=== PATIENT | female | born 1980 | race Caucasian/White ===

== ENCOUNTER 2016-11-05 21:37 | Emergency (ER) | payer OTHER ==
[~2016-11-05] VITALS: Ht 165.1 cm; Wt 95.3 kg
[~2016-11-05 21:37] MED LIST: MTR600X PO; PRENTAB26 PO; SUBUTEX SL
[2016-11-05 21:40] VITALS: TEMP 36.8; Ht 165.1 cm; Wt 95.3 kg
[2016-11-05] MEDS ORDERED: CEFTRIAXONE SOD INJ 1 GM ADDVIAL IV STA (22:05)
[2016-11-05] MEDS ORDERED: MoRPHine SULFATE 4 MG/ML 1 ML CARP\\VIAL IV STA (22:05)
[2016-11-05] MEDS ORDERED: ONDANSETRON INJ 2 MG/ML 2 ML VIAL IV STA (22:05)
[2016-11-05] MEDS ORDERED: XYLOCAINE 1%/SOD BICARB 20 ML VIAL INFIL ONE (22:15)
[2016-11-05 22:57] VITALS: BP 128/81; PULSE 88; O2SAT 98
[2016-11-05] MEDS ORDERED: SULF800T23 PO (23:38)
[2016-11-05] MEDS ORDERED: CEPH500C2 PO (23:38)
[2016-11-05] MEDS ORDERED: SEPTRA DS HOME PACK 1 EA VIAL PO ONE (23:45)
[2016-11-05] MEDS ORDERED: CEPHALEXIN 500MG HOME PACK 1 EA BTL PO ONE (23:45)
--- NOTE | 2016-11-06 04:38 | EMERGENCY ROOM VISIT NOTE ---
History First contact with patient: 21:59 Chief Complaint: WOUND INFECTION Stated Complaint: BOIL ON BREAST THAT IS POSSIBLY INFECTED History of Present Illness The patient is a 36 year old female who presents to the Emergency Room with complaints of right breast pain and swelling for the past few days who has a boil there and put a needle in it but cannot get anything out. Tetanus is current. Patient denies fever, chills, nausea, vomiting, chest pain, dyspnea, abdominal pain. No history of MRSA. Review of Systems See HPI for pertinent positives & negatives. A total of 6 systems reviewed and were otherwise negative. 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 (12) TOBACCO USE DISORDER Social History Smoking Status: Current Every Day Smoker Alcohol Use: none Drug Use: none Marital Status: Housing Status: lives with family Occupation Status: employed Current/Historical Medications Scheduled Cephalexin Monohydrate (Keflex), 500 MG PO QID Sulfa/Trimethoprim (Bactrim Ds 800MG/160MG), 1 TAB PO BID Allergies Coded Allergies: Sertraline (Verified Allergy, Unknown, Suicide ideations., 09/23/14) Physical Exam Vital Signs Date Time Temp Pulse Resp B/P Pulse Ox O2 Delivery O2 Flow Rate FiO2 11/05/16 22:57 88 18 128/81 98 Room Air 11/05/16 21:40 36.8 83 20 149/93 98 Room Air Pain Rating (0-10): 2.0 Physical Exam VITALS: Vitals are noted on the nurse's note and reviewed by myself. Vital signs stable. GENERAL: Pleasant female, in no acute distress, nondiaphoretic, well-developed well-nourished. SKIN: Capillary reflex less than 2 seconds. HEENT: Normocephalic. PERRLA. EOMI. Nares patent. Mucous membranes moist. Neck is supple without nuchal rigidity. Breast exam: Right breast upper quadrant with palpable abscess 2 cm x 3 cm with surrounding cellulitis a 5 cm x 5 cm, no right axillary lymph node enlargement, left breast normal shot from present HEART: Regular rate and rhythm without murmurs gallops or rubs. LUNGS: Clear to auscultation bilaterally without wheezes, rales or rhonchi. No retractions or accessory muscle use. ABDOMEN: Positive bowel sounds x 4. Normal tympanic percussion. Soft, nontender, without masses or organomegaly. Weller sign negative. No guarding or rebound tenderness. MUSCULOSKELETAL: No gross musculoskeletal defects. No pedal edema. No calf tenderness. NEURO: Patient was alert and oriented to person place and time. Normal sensation to light and sharp touch. No focal neurological deficits. Medical Decision & Procedures Medications Administered Medications (Trade) Dose Ordered Sig/Nadja Route Start Time Stop Time Status Last Admin Dose Admin Cephalexin Monohydrate (Keflex 500MG Home Pack) 1 homepack NOW ONCE PO 11/05/16 23:45 11/05/16 23:46 DC 11/05/16 23:44 1 HOMEPACK Trimethoprim/ Sulfamethoxazole (Sulfameth/ Trimeth Ds 800/ 160MG Home Pack) 1 homepack UD ONCE PO 11/05/16 23:45 11/05/16 23:46 DC 11/05/16 23:44 1 HOMEPACK Procedure Incision & Drainage Indication: Abscess. Location: right breat Verbal consent was obtained after the risks and benefits were explained, including but not limited to bleeding, scarring, infection, pain, and bone/joint /nerve damage. At this time, the risks of the procedure are less than the risks of NOT performing the procedure. A time out was taken and the correct patient and site identified. The skin was prepped with betadine and a sterile field set. The wound was anesthetized with 5 ml of 1% lidocaine without epinephrine. The abscess cavity was entered with a number 11 blade and purulent material expressed. Copious irrigation was performed using normal saline. The wound was explored for foreign bodies and none found. Debridement was not performed. Packing placed and a sterile dressing applied. Detailed wound care instructions and signs and symptoms of worsening infection reviewed with the patient. No complications and the patient tolerated the procedure well. ED Course Prior records reviewed and summarized as above. Triage Nursing notes reviewed. Additional history obtained from family. The patient's history was concerning for swelling and redness of the skin. Differential diagnosis: Etiologies such as cellulitis, abscess, MRSA infection, mastitis, necrotizing fasciitis, dermatitis, drug eruption, as well as others were entertained.. Physical examination: The physical examination was consistent with cellulitis with abscess ER treatment provided: Keflex, Bactrim On reassessment the patient felt better. Diagnostics interpreted by me: The labs revealed wound culture pending Labs were unable to retain by nursing immediately and patient had to be at work at 1 AM. Patient refused ultrasound and laboratory testing. This appears to be abscess with surrounding cellulitis. Patient was advised to have wound repacking in 2 days or to return to the ER immediately for fevers, spreading infection, vomiting, worsening signs or symptoms or as needed. Patient did request to have the abscess I&D. She started Keflex and Bactrim. She is well-appearing. By the evaluation outlined above emergent etiologies such as necrotizing fasciitis, as well as others were deemed relatively unlikely. The pt informed about the findings as listed above. All questions were answered and pleased with the treatment. Return instructions were outlined and the patient was discharged in stable condition. Outpatient prescription management: Keflex, Bactrim Referral: The patient was referred back to primary care physician for follow-up in 2 to 3 days for a recheck of the current condition. Medical Decision As above Impression Primary Impression: Abscess of right breast Departure Information Dispostion Home / Self-Care Condition GOOD Prescriptions Cephalexin Monohydrate (KEFLEX) 500 Mg Cap 500 MG PO QID for 9 Days, #36 CAP Prov: Karyn Solano PA-C 11/05/16 Sulfa/Trimethoprim (Bactrim Ds 800MG/160MG) Tab 1 TAB PO BID for 9 Days, #18 TAB Prov: Karyn Solano PA-C 11/05/16 Forms WORK / SCHOOL INSTRUCTIONS, HOME CARE DOCUMENTATION FORM, IMPORTANT VISIT INFORMATION Patient Instructions [facility], ED Abscess IandD Additional Instructions Frequently change outer dressing. Leave inner wick inside. Bring packing back and do not open it up to your appointment in 2-3 days for wound repacking. Cephalexin(Keflex) 500mg: Take one pill four times daily for 10 days for your skin infection. All antibiotics can cause diarrhea. If this occurs and you feel worse or it does not resolve in 1-2 days follow up with your doctor or return to the Emergency Department as this could be signs of serious underlying problems. Any medication can cause an allergic reaction, stop the pills immediately and return to the ER for rash, hives, breathing difficulties, or swelling. Trimethoprim-Sulfamethoxazole(Bactrim DS): Take one pill twice daily for 10 days for your skin infection. All antibiotics can cause diarrhea. If this occurs and you feel worse or it does not resolve in 1-2 days follow up with your doctor or return to the Emergency Department as this could be signs of serious underlying problems. Any medication can cause an allergic reaction, stop the pills immediately and return to the ER for rash, hives, breathing difficulties, or swelling. Ibuprofen(Motrin, Advil) may be used for fever or pain. Use 600mg every six hours as needed. Take with food. Avoid using more than 2400mg in a 24 hour period. Do not use 2400mg per day for more than three consecutive days without physician direction. Prolonged inappropriate use can lead to stomach upset or ulcers. (AND/OR) Acetaminophen(Tylenol) may be used for fever or pain. Use 1000mg every six hours as needed. Avoid using more than 3000mg in a 24 hour period. Rest and drink plenty of fluids. Continue current medications. Return to the ER for severe pain, persistent fevers, spreading redness, or any worsening of your condition. Follow up with your primary physician or here in the ER within 2-3 days for a recheck of the current condition and wound repacking.
== END 2016-11-05 23:48 | disposition home or self-care (01) ==
LOC: C.EDB 21:38
DX: N61.1 Abscess of the breast and nipple (principal); F17.200 Nicotine dependence, unspecified, uncomplicated

== ENCOUNTER 2016-11-07 21:32 | Emergency (ER) | payer OTHER ==
[~2016-11-07] VITALS: Ht 165.1 cm; Wt 94.7 kg
[~2016-11-07 21:32] MED LIST changes: +CEPH500C2 PO; -MTR600X PO; -PRENTAB26 PO; -SUBUTEX SL; +SULF800T23 PO
[2016-11-07 21:36] VITALS: TEMP 36.9; Ht 165.1 cm; Wt 94.7 kg
--- NOTE | 2016-11-07 22:32 | EMERGENCY ROOM VISIT NOTE ---
ED Visit Note First contact with patient: 22:08 CHIEF COMPLAINT: Wound check HISTORY OF PRESENT ILLNESS: This 36 yo patient presents to the emergency department for a recheck of right breast abscess with surrounding cellulitis that was seen by myself 2 days ago and packed. Patient states overall it is healing nicely and is here for wound recheck and repacking. Previous care outlined has been followed without difficulty. REVIEW OF SYSTEMS: A 6 system review of systems was completed with positives and pertinent negatives listed in the HPI. ALLERGIES: reviewed MEDICATIONS: Bactrim, Keflex, reviewed PMH: Unchanged from previous visit. PHYSICAL EXAM: Vital Signs reviewed, see Nurse's notes. Patient is afebrile, vital signs stable. GENERAL: Pleasant female, awake, alert, well appearing, no acute distress SKIN: Inspection of the right breast reveals decreased erythema with no palpable abscess. MUSCULOSKELETAL: Chest nontender to palpation NEURO: No sensory or motor deficits noted. EMERGENCY DEPARTMENT COURSE AND DECISION MAKING: I examined the patient. The patient presented with an isolated wound as above. Wound was repacked without difficulties, wound culture still pending but shows gram-positive cocci. The wound is healing well. ER Treatment: The wound was repacked. Patient was advised to have wound repacking in 3 days Discharge instructions reviewed. Discharged in stable condition. DIAGNOSIS: Healing right breast abscess with surrounding cellulitis TREATMENT PLAN: As below Problem List Medical Problems: (1) Appendectomy Status: Resolved (2) LUMBAGO Status: Chronic (3) MENSTRUAL DISORDER NEC Status: Chronic (4) MIGRAINE UNSPECIFIED W/O INTRACTABLE MIGRAINE Status: Chronic (5) PITUITARY DISORDER NEC Status: Chronic (6) POISONING-ANTIDEPRESSANT Status: Chronic (7) PSEUDOTUMOR CEREBRI Status: Chronic (8) SCIATICA Status: Chronic (9) STREP SORE THROAT Status: Chronic (10) SUICIDE-ANALGESICS Status: Chronic (11) SUICIDE-PSYCHOTROPIC AGT Status: Chronic (12) TOBACCO USE DISORDER Status: Chronic Current/Historical Medications Scheduled Cephalexin Monohydrate (Keflex), 500 MG PO QID Sulfa/Trimethoprim (Bactrim Ds 800MG/160MG), 1 TAB PO BID Allergies Coded Allergies: Sertraline (Verified Allergy, Unknown, Suicide ideations., 09/23/14) Vital Signs Date Time Temp Pulse Resp B/P Pulse Ox O2 Delivery O2 Flow Rate FiO2 11/07/16 21:36 36.9 76 18 137/83 99 Room Air Departure Information Referrals No Doctor, Assigned (PCP) Patient Instructions [facility]
[2016-11-07 22:38] VITALS: BP 130/86; PULSE 81; O2SAT 97
== END 2016-11-07 22:42 | disposition home or self-care (01) ==
LOC: C.EDB 21:34 → C.EDD 22:42
DX: N61.0 Mastitis without abscess (principal); Z48.01 Encounter for change or removal of surgical wound dressing; F17.200 Nicotine dependence, unspecified, uncomplicated

== ENCOUNTER 2016-11-10 20:57 | Emergency (ER) | payer OTHER ==
[~2016-11-10] VITALS: Ht 165.1 cm; Wt 96.2 kg
[2016-11-10 21:02] VITALS: BP 142/81; PULSE 79; TEMP 36.6; O2SAT 100; Ht 165.1 cm; Wt 96.2 kg
--- NOTE | 2016-11-10 21:42 | EMERGENCY ROOM VISIT NOTE ---
ED Visit Note First contact with patient: 21:26 HISTORY OF PRESENT ILLNESS: This 36 yo patient presents to the emergency department for a recheck of right breast abscess with surrounding cellulitis that was seen by myself 5 days ago and packed. Patient states overall it is healing nicely and is here for wound recheck and repacking. Previous care outlined has been followed without difficulty. Patient states she does not have a family care doctor and would like to return here for wound repacking. Patient was offered referral to family medicine and declined. REVIEW OF SYSTEMS: A 6 system review of systems was completed with positives and pertinent negatives listed in the HPI. ALLERGIES: reviewed MEDICATIONS: Bactrim, Keflex, reviewed PMH: Unchanged from previous visit. PHYSICAL EXAM: Vital Signs reviewed, see Nurse's notes. Patient is afebrile, vital signs stable. GENERAL: Pleasant female, awake, alert, well appearing, no acute distress SKIN: Inspection of the right breast reveals decreased erythema with no palpable abscess. MUSCULOSKELETAL: Chest nontender to palpation NEURO: No sensory or motor deficits noted. EMERGENCY DEPARTMENT COURSE AND DECISION MAKING: I examined the patient. The patient presented with an isolated wound as above. Wound was repacked without difficulties, wound culture still pending but shows gram-positive cocci. The wound is healing well. ER Treatment: The wound was repacked. Patient was advised to have wound repacking in 3 days Discharge instructions reviewed. Discharged in stable condition. DIAGNOSIS: Healing right breast abscess with surrounding cellulitis TREATMENT PLAN: As below Problem List Medical Problems: (1) Appendectomy Status: Resolved (2) LUMBAGO Status: Chronic (3) MENSTRUAL DISORDER NEC Status: Chronic (4) MIGRAINE UNSPECIFIED W/O INTRACTABLE MIGRAINE Status: Chronic (5) PITUITARY DISORDER NEC Status: Chronic (6) POISONING-ANTIDEPRESSANT Status: Chronic (7) PSEUDOTUMOR CEREBRI Status: Chronic (8) SCIATICA Status: Chronic (9) STREP SORE THROAT Status: Chronic (10) SUICIDE-ANALGESICS Status: Chronic (11) SUICIDE-PSYCHOTROPIC AGT Status: Chronic (12) TOBACCO USE DISORDER Status: Chronic Current/Historical Medications Scheduled Cephalexin Monohydrate (Keflex), 500 MG PO QID Sulfa/Trimethoprim (Bactrim Ds 800MG/160MG), 1 TAB PO BID Allergies Coded Allergies: Sertraline (Verified Allergy, Unknown, Suicide ideations., 12/16/14) Vital Signs Date Time Temp Pulse Resp B/P Pulse Ox O2 Delivery O2 Flow Rate FiO2 11/10/16 21:02 36.6 79 18 142/81 100 Room Air Departure Information Referrals No Doctor, Assigned (PCP) Patient Instructions [facility]
== END 2016-11-10 21:53 | disposition home or self-care (01) ==
LOC: C.EDB 21:00 → C.EDD 21:53
DX: N61.1 Abscess of the breast and nipple (principal); Z48.00 Encounter for change or removal of nonsurgical wound dressing; M54.5 Low back pain; N92.6 Irregular menstruation, unspecified; G43.909 Migraine, unspecified, not intractable, without status migrainosus; E23.7 Disorder of pituitary gland, unspecified; G93.2 Benign intracranial hypertension; F17.200 Nicotine dependence, unspecified, uncomplicated

== ENCOUNTER 2016-11-14 21:34 | Emergency (ER) | payer OTHER ==
[~2016-11-14] VITALS: Ht 165.1 cm; Wt 96.2 kg
[2016-11-14 21:54] VITALS: BP 138/78; PULSE 79; TEMP 36.6; O2SAT 99; Ht 165.1 cm; Wt 96.2 kg
--- NOTE | 2016-11-14 22:08 | EMERGENCY ROOM VISIT NOTE ---
ED Visit Note First contact with patient: 21:57 HISTORY OF PRESENT ILLNESS: This 36 yo patient presents to the emergency department for a recheck of right breast abscess with surrounding cellulitis that was seen by myself 5 days ago and packed. Patient states overall it is healing nicely and is here for wound recheck and repacking. Previous care outlined has been followed without difficulty. Patient states she does not have a family care doctor and would like to return here for wound repacking. Patient was offered referral to family medicine and declined. REVIEW OF SYSTEMS: A 6 system review of systems was completed with positives and pertinent negatives listed in the HPI. ALLERGIES: reviewed MEDICATIONS: Bactrim, Keflex, reviewed PMH: Unchanged from previous visit. PHYSICAL EXAM: Vital Signs reviewed, see Nurse's notes. Patient is afebrile, vital signs stable. GENERAL: Pleasant female, awake, alert, well appearing, no acute distress SKIN: Inspection of the right breast reveals decreased erythema with no palpable abscess. MUSCULOSKELETAL: Chest nontender to palpation NEURO: No sensory or motor deficits noted. EMERGENCY DEPARTMENT COURSE AND DECISION MAKING: I examined the patient. The patient presented with an isolated wound as above. Wound was repacked without difficulties, wound culture still pending but shows gram-positive cocci. The wound is healing well. ER Treatment: The wound was repacked. Patient was advised to have wound repacking in 3 days Discharge instructions reviewed. Discharged in stable condition. DIAGNOSIS: Healing right breast abscess with surrounding cellulitis TREATMENT PLAN: As below Problem List Medical Problems: (1) Appendectomy Status: Resolved (2) LUMBAGO Status: Chronic (3) MENSTRUAL DISORDER NEC Status: Chronic (4) MIGRAINE UNSPECIFIED W/O INTRACTABLE MIGRAINE Status: Chronic (5) PITUITARY DISORDER NEC Status: Chronic (6) POISONING-ANTIDEPRESSANT Status: Chronic (7) PSEUDOTUMOR CEREBRI Status: Chronic (8) SCIATICA Status: Chronic (9) STREP SORE THROAT Status: Chronic (10) SUICIDE-ANALGESICS Status: Chronic (11) SUICIDE-PSYCHOTROPIC AGT Status: Chronic (12) TOBACCO USE DISORDER Status: Chronic Current/Historical Medications Scheduled Cephalexin Monohydrate (Keflex), 500 MG PO QID Sulfa/Trimethoprim (Bactrim Ds 800MG/160MG), 1 TAB PO BID Allergies Coded Allergies: Sertraline (Verified Allergy, Unknown, Suicide ideations., 12/16/14) Vital Signs Date Time Temp Pulse Resp B/P Pulse Ox O2 Delivery O2 Flow Rate FiO2 11/14/16 21:54 36.6 79 18 138/78 99 Room Air Departure Information Referrals No Doctor, Assigned (PCP) Patient Instructions [facility]
== END 2016-11-14 22:27 | disposition home or self-care (01) ==
LOC: C.EDB 21:35 → C.EDD 22:27
DX: N61.1 Abscess of the breast and nipple (principal); Z88.8 Allergy status to other drugs, medicaments and biological substances

== ENCOUNTER 2017-03-12 18:32 | Emergency (ER) | payer OTHER ==
[~2017-03-12] VITALS: Ht 165.1 cm; Wt 89.0 kg
[2017-03-12 18:39] VITALS: TEMP 37.1; O2SAT 100; Ht 165.1 cm; Wt 89.0 kg
[2017-03-12] MEDS ORDERED: MULT-506 PO (18:55)
[2017-03-12] MEDS ORDERED: HYDROXYCUT PO (18:55)
--- NOTE | 2017-03-12 20:48 | DIAGNOSTIC IMAGING REPORT ---
RIGHT UPPER EXTREMITY VENOUS DOPPLER HISTORY: right arm pain/swelling Right COMPARISON STUDY: Venous Doppler 03/17/2013. FINDINGS: The right internal jugular vein is patent. There is normal flow within the right subclavian vein. There is normal flow and compressibility within the right axillary, basilic, brachial, radial, ulnar, and visualized cephalic veins. Within the right antecubital fossa there is a 2.4 x 1.3 x 1.4 cm complex area. This may represent complex fluid in the setting of a small abscess or phlegmon. IMPRESSION: No DVT within the right upper extremity. A 2.4 x 1.4 x 1.3 cm hypoechoic area within the right antecubital fossa. This may represent a developing abscess or phlegmon. Electronically signed by: Ike Reinoso M.D. 03/12/2017 8:47 PM Dictated Date/Time: 03/12/2017 8:45 PM
[2017-03-12] MEDS ORDERED: SEPTRA DS HOME PACK 1 EA VIAL PO ONE (21:00)
[2017-03-12] MEDS ORDERED: CEPHALEXIN 500MG HOME PACK 1 EA BTL PO ONE (21:00)
[2017-03-12] MEDS ORDERED: CEPH500C PO (21:06)
[2017-03-12] MEDS ORDERED: SULF800T23 PO (21:06)
--- NOTE | 2017-03-12 21:08 | EMERGENCY ROOM VISIT NOTE ---
History First contact with patient: 18:45 Chief Complaint: WOUND INFECTION Stated Complaint: SCAR OPENED ON R ARM,LUMP FORMED, RED Nursing Triage Summary: former IVDU and one of her friends nails caught on old trach timur scar and was at camp and now is concerned for infection did 't get irritated until she started tanning are is not red or warm to touch mild swelling right AC area History of Present Illness The patient is a 36 year old female who presents to the Emergency Room with complaints of swelling and pain of the right forearm. The patient states that she is a former IV drug user. The patient states she has not used drugs in 6 years. She reports that a few weeks ago, one of her friends fingernails got caught on an old scar in her right antecubital fossa. She reports over the past several days, she has noticed swelling and mild pain in the area. She states this occurred after she started tanning and using a tanning lotion. She has a history of both infections and superficial thrombophlebitis in this arm. She denies difficulty moving the arm, fevers or chills. Review of Systems A complete 10 point review of systems was reviewed with the patient with pertinent positives and negatives as per history of present illness. All else were negative. 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 (12) TOBACCO USE DISORDER Social History Smoking Status: Current Every Day Smoker Alcohol Use: none Drug Use: none Marital Status: Housing Status: lives with family Occupation Status: employed Current/Historical Medications Scheduled Cephalexin Monohydrate (Keflex), 500 MG PO QID Multivitamin (Multivitamin), 1 TAB PO DAILY Sulfa/Trimethoprim (Bactrim Ds 800MG/160MG), 1 TAB PO BID [Hydroxycut], 1 DOSE PO DIRECTED Allergies Coded Allergies: Sertraline (Verified Allergy, Severe, THROAT SWELLING-Suicide ideations., 03/12/17) Physical Exam Vital Signs Date Time Temp Pulse Resp B/P (MAP) Pulse Ox O2 Delivery O2 Flow Rate FiO2 6/4/17 21:16 86 137/89 03/12/17 18:39 37.1 116 18 154/90 100 Physical Exam VITALS: Vitals are noted on the nurse's note and reviewed by myself. Vital signs stable. GENERAL: This is a 36-year-old female, in no acute distress, nondiaphoretic, well-developed well-nourished. SKIN: There is an area of erythema and mild induration over the anterior right proximal forearm. There is no fluctuance. There is no significant erythema or warmth. HEART: Regular rate and rhythm without murmurs gallops or rubs. LUNGS: Clear to auscultation bilaterally without wheezes, rales or rhonchi. NEURO: Patient was alert and oriented to person place and time. Normal sensation to light and sharp touch. Medical Decision & Procedures ER Provider Diagnostic Interpretation: RIGHT UPPER EXTREMITY VENOUS DOPPLER HISTORY: right arm pain/swelling Right COMPARISON STUDY: Venous Doppler 03/17/2013. FINDINGS: The right internal jugular vein is patent. There is normal flow within the right subclavian vein. There is normal flow and compressibility within the right axillary, basilic, brachial, radial, ulnar, and visualized cephalic veins. Within the right antecubital fossa there is a 2.4 x 1.3 x 1.4 cm complex area. This may represent complex fluid in the setting of a small abscess or phlegmon. IMPRESSION: No DVT within the right upper extremity. A 2.4 x 1.4 x 1.3 cm hypoechoic area within the right antecubital fossa. This may represent a developing abscess or phlegmon. Medications Administered Medications (Trade) Dose Ordered Sig/Nadja Route Start Time Stop Time Status Last Admin Dose Admin Trimethoprim/ Sulfamethoxazole (Sulfameth/ Trimeth Ds 800/ 160MG Home Pack) 1 homepack UD ONCE PO 03/12/17 21:00 03/12/17 21:01 DC 03/12/17 21:06 1 HOMEPACK Cephalexin Monohydrate (Keflex 500MG Home Pack) 1 homepack NOW ONCE PO 03/12/17 21:00 03/12/17 21:01 DC 03/12/17 21:05 1 HOMEPACK Medical Decision Differential diagnosis includes abscess, cellulitis, superficial thrombophlebitis, DVT, among others. The patient was invited as above. An ultrasound of the right upper extremity was performed and was negative for any thrombus, but did show what appears to be a developing abscess or phlegmon. There is no fluctuance to palpation and I do not feel that incision and drainage will be beneficial at this time. The patient will be placed on Bactrim and Keflex. She was instructed to have a reevaluation in 2-3 days. She should return for worsening swelling, worsening pain or fevers. She was instructed to use warm compresses at home. She verbalized understanding of my assessment and treatment plan and was discharged home in good condition. Medication reconciliation: I attest that I have personally reviewed the patient' s current medication list. Blood pressure screening: Patient was found to have an elevated blood pressure and was referred to their primary care provider for recheck and further treatment. Impression Primary Impression: Cellulitis of right forearm Departure Information Dispostion Home / Self-Care Condition GOOD Prescriptions Cephalexin Monohydrate (Keflex) 500 Mg Cap 500 MG PO QID for 9 Days, #36 CAP Prov: Karen Pratt PA-C 03/12/17 Sulfa/Trimethoprim (Bactrim Ds 800MG/160MG) Tab 1 TAB PO BID for 9 Days, #18 TAB Prov: Karen Pratt PA-C 03/12/17 Referrals No Doctor, Assigned (PCP) Patient Instructions My [facility] Additional Instructions You were prescribed Bactrim to be taken twice daily. This is an antibiotic. All antibiotics have the potential to cause diarrhea. Stop this medication and contact a medical provider if you were to develop any significant adverse side effects including: wheezing, shortness of breath, passing out, vomiting, or a diffuse rash. Always take antibiotics as directed and COMPLETE the ENTIRE course regardless of the improvement of your symptoms. You were prescribed Keflex to be taken 3 times daily. This is an antibiotic. All antibiotics have the potential to cause diarrhea. Stop this medication and contact a medical provider if you were to develop any significant adverse side effects including: wheezing, shortness of breath, passing out, vomiting, or a diffuse rash. Always take antibiotics as directed and COMPLETE the ENTIRE course regardless of the improvement of your symptoms. For pain control, you can use the following ibll-adg-rplveyu medicines (if >12 yo): - Regular strength (325mg/tab) Tylenol (acetaminophen) 2 tabs every 4-6 hours as needed. Do not exceed 12 tablets in a 24 hour period. Avoid taking more than 4 grams (4000 mg) of Tylenol per day. This includes any other sources of acetaminophen you may take on a regular basis. - Regular strength (200 mg/tab) Advil (ibuprofen) 1-2 tabs every 4-6 hours as needed. Do not exceed a dose of 3200 mg per day. Apply warm compresses to the area frequently for the next few days. Follow-up with her primary care provider this week. Return to the emergency department with worsening swelling, redness, fevers or any other new/concerning symptoms.
[2017-03-12 21:16] VITALS: BP 137/89; PULSE 86
== END 2017-03-12 21:11 | disposition home or self-care (01) ==
LOC: C.EDB 18:33 → C.EDD 21:11
DX: L03.113 Cellulitis of right upper limb (principal); G43.909 Migraine, unspecified, not intractable, without status migrainosus; E23.7 Disorder of pituitary gland, unspecified; G93.2 Benign intracranial hypertension; M54.30 Sciatica, unspecified side; F17.210 Nicotine dependence, cigarettes, uncomplicated

== ENCOUNTER 2018-01-04 15:06 | Emergency (ER) | payer OTHER ==
[~2018-01-04] VITALS: Ht 165.1 cm; Wt 87.2 kg
[~2018-01-04 15:06] MED LIST changes: -CEPH500C2 PO; +MULT-506 PO; -SULF800T23 PO
[2018-01-04 15:11] VITALS: BP 166/92; TEMP 36.9; Ht 165.1 cm; Wt 87.2 kg
[2018-01-04] MEDS ORDERED: CEFTRIAXONE SOD 350MG/ML 1 GM VIAL IM ONE (15:30)
--- NOTE | 2018-01-04 15:48 | DIAGNOSTIC IMAGING REPORT ---
L ANKLE MIN 3 VIEWS ROUTINE CLINICAL HISTORY: L ankle nail puncture wound medially with infection pain COMPARISON: None. DISCUSSION: The bones and joint spaces appear intact. There is no evidence of fracture, dislocation or bony disease. Mild medial soft tissue edema IMPRESSION: No acute bony abnormality. Mild medial soft tissue edema. The above report was generated using voice recognition software. It may contain grammatical, syntax or spelling errors. Electronically signed by: Isai Blake M.D. 01/04/2018 3:47 PM Dictated Date/Time: 01/04/2018 3:46 PM
[2018-01-04] MEDS ORDERED: SULF800T23 PO (15:57)
[2018-01-04 16:04] VITALS: PULSE 89; O2SAT 98
[2018-01-05] MEDS ORDERED: SULF800T23 PO (00:12)
--- NOTE | 2018-01-08 07:20 | EMERGENCY ROOM VISIT NOTE ---
History First contact with patient: 15:18 Chief Complaint: SWELLING TO EXTREMITY Stated Complaint: L ANKLE INFECTION History of Present Illness The patient is a 37 year old female who presents to the Emergency Room with complaints of a persistent infection on the left ankle. The patient reports that she suffered a puncture wound to the ankle on 12/20/17 when she was walking up steps into a old house. She reports that her foot broke through a board and a tyrese nail punctured her ankle. The patient reports that she cleanse the wound, and did not have any discomfort until 11 days later when she quickly started to develop redness and swelling. She was seen at the [place] emergency department, and provided a prescription for Keflex. She reports that the redness has significantly improved, but is concerned that she now has an abscess at the puncture wound site. She denies any drainage from the site, and rates her discomfort a 7 out of 10. Otherwise she denies any significant worsening pain with ambulation or range of motion of the ankle. Tetanus immunization is up-to-date. The patient denies any prior history of resistant infections. Review of Systems 10 system review was performed and was negative except for pertinent positives and negatives as indicated in history of present illness 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 (12) TOBACCO USE DISORDER Family History Unremarkable Social History Smoking Status: Current Every Day Smoker Alcohol Use: none Drug Use: none Marital Status: Housing Status: lives with family Occupation Status: employed Current/Historical Medications Scheduled Multivitamin (Multivitamin), 1 TAB PO DAILY Sulfa/Trimethoprim (Bactrim Ds 800MG/160MG), 1 TAB PO BID Physical Exam Vital Signs Date Time Temp Pulse Resp B/P (MAP) Pulse Ox O2 Delivery O2 Flow Rate FiO2 01/04/18 16:04 89 16 98 01/04/18 15:11 36.9 90 16 166/92 99 Room Air Physical Exam CONSTITUTIONAL: Healthy and well nourished. Alert and oriented X 3 with positive affect. Patient does not appear in any acute distress. HEENT: Normocephalic, atraumatic. Pupils equal, round and reactive. NECK: Full active range of motion without discomfort. MUSCULOSKELETAL: Examination of the left ankle shows a puncture wound medially with notable surrounding erythema. Mild induration is noted, however no obvious fluctuance or drainage from the puncture wound site. The patient has no worsening pain with range of motion of the tibiotalar joint. Negative anterior drawer. Pedal pulses are intact. INTEGUMENTARY: No rash or other significant dermatologic conditions noted. NEUROLOGIC: No focal neurologic deficits noted. Left foot and toes are sensory intact. Medical Decision & Procedures ER Provider Diagnostic Interpretation: My interpretation of left ankle x-rays does not show any acute fractures, underlying radiopaque foreign body or joint effusion. Radiologist report is as follows: L ANKLE MIN 3 VIEWS ROUTINE CLINICAL HISTORY: L ankle nail puncture wound medially with infection pain COMPARISON: None. DISCUSSION: The bones and joint spaces appear intact. There is no evidence of fracture, dislocation or bony disease. Mild medial soft tissue edema IMPRESSION: No acute bony abnormality. Mild medial soft tissue edema. Medications Administered Medications (Trade) Dose Ordered Sig/Nadja Route Start Time Stop Time Status Last Admin Dose Admin Ceftriaxone Sodium (Rocephin Im) 1,000 mg NOW ONCE IM 01/04/18 15:30 01/04/18 15:31 DC 01/04/18 15:47 1,000 MG ED Course Patient history and physical exam were performed. Nurse's notes were reviewed. Vital signs were reviewed, showing a blood pressure of 166/92. Patient does not appear in any acute distress. Because the patient still has persistent erythema, I did suggest augmenting her Keflex with a dose of Rocephin. The patient elected Rocephin 1 g IM. X-rays of the left ankle were normal. The patient will also be provided a prescription for Bactrim DS for broad infection coverage. She was instructed to finish her Keflex as previously prescribed. Return to the emergency department for any significantly worsening redness, swelling, pain or developing fever. The patient was happy with plan of care, voiced understanding of all discharge instructions, and rated her pain a 3 out of 10 at the time of discharge. It is noted that the patient's blood pressure was elevated in the emergency department at 166/92. She was instructed to follow-up with her family doctor for blood pressure recheck. Medical Decision Medication Reconcilliation Current Medication List: was personally reviewed by me Blood Pressure Screening Patient's blood pressure: Elevated blood pressure Blood pressure disposition: Referred to PCP Impression Primary Impression: Cellulitis of left ankle Additional Impression: Elevated blood pressure reading Departure Information Referrals No Doctor, Assigned (PCP) Patient Instructions My [facility] Health Problem Qualifiers
== END 2018-01-04 16:05 | disposition home or self-care (01) ==
LOC: C.EDB 15:07 → C.EDD 16:05
DX: L03.116 Cellulitis of left lower limb (principal); R03.0 Elevated blood-pressure reading, without diagnosis of hypertension; F17.200 Nicotine dependence, unspecified, uncomplicated

== ENCOUNTER 2018-01-04 23:42 | Emergency (ER) | payer OTHER ==
[~2018-01-04] VITALS: Ht 165.1 cm; Wt 87.8 kg
[~2018-01-04 23:42] MED LIST changes: +SULF800T23 PO
[2018-01-04 23:46] VITALS: TEMP 36.7; Ht 165.1 cm; Wt 87.8 kg
[2018-01-05] MEDS ORDERED: SODIUM CHLORIDE 0.9% 500ML 500 ML IV STA (00:01)
--- NOTE | 2018-01-05 00:08 | EMERGENCY ROOM VISIT NOTE ---
History Report prepared by Angella: Mehul Cerda Under the Supervision of: Dr. Michelle Dean M.D. First contact with patient: 23:50 Chief Complaint: WOUND INFECTION Stated Complaint: infection on my left ankle, NEEDS DRAINED History of Present Illness The patient is a 37 year old female who presents to the Emergency Room with complaints of constant left ankle pain beginning four days ago. The patient states that she fell down the stairs two weeks ago and had a nail become stuck in her ankle. She reports that she was put on Keflex for the last thee days. The patient states that she received a Ceftriaxone shot at 1500 today in the ED and was started on Bactrim. She notes that her ankle became red and painful about four days ago. She reports that her pain and swelling worsen as she walks. The patient states that she is up to date on her tetanus shots. She rates her pain as a 10/10. Source of History: patient Onset: four days ago Position: other (left ankle) Symptom Intensity: 10/10 Timing: constant Modifying Factors (Worsening): other (walking) Review of Systems See HPI for pertinent positives & negatives. A total of 10 systems reviewed and were otherwise negative. 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 (12) TOBACCO USE DISORDER Family History Diabetes mellitus Hypertension Lung disease Social History Smoking Status: Current Every Day Smoker Alcohol Use: none Marital Status: Housing Status: lives with family Occupation Status: employed Current/Historical Medications Scheduled Multivitamin (Multivitamin), 1 TAB PO DAILY Sulfa/Trimethoprim (Bactrim Ds 800MG/160MG), 1 TAB PO BID Allergies Coded Allergies: Sertraline (Verified Allergy, Severe, THROAT SWELLING-Suicide ideations., 01/05/18) Physical Exam Vital Signs Date Time Temp Pulse Resp B/P (MAP) Pulse Ox O2 Delivery O2 Flow Rate FiO2 01/05/18 07:05 95 01/05/18 07:00 98/56 01/05/18 06:41 75 100 Room Air 01/05/18 06:30 100/52 01/05/18 06:11 79 24 100 01/05/18 06:06 67 96 01/05/18 06:01 96/59 01/05/18 05:36 78 23 98 01/05/18 05:06 86 18 100 01/05/18 05:02 125/80 01/05/18 04:36 79 25 99 01/05/18 04:31 108/57 01/05/18 04:10 82 24 98 01/05/18 04:08 84 01/05/18 04:00 120/66 01/05/18 03:40 75 21 99 01/05/18 03:31 103/61 01/05/18 01:10 95 27 95 01/05/18 01:05 88 25 98 01/05/18 01:00 131/93 01/05/18 00:42 91 18 01/05/18 00:38 92 01/05/18 00:37 93 21 96 Room Air 01/05/18 00:35 134/78 01/04/18 23:46 36.7 92 18 143/83 97 Room Air Physical Exam Vital signs reviewed. General: Well-appearing female, in no significant distress. HEENT: No scleral icterus, PERRLA, neck supple. Atraumatic. Cardiovascular: Regular rate and rhythm, no extra sounds. Pulmonary: Clear to auscultation bilaterally, normal work of breathing. Abdomen: Soft, nontender, nondistended, positive bowel sounds. Musculoskeletal: Atraumatic. 1cm taught nonfluctuant swelling over medial malleolus on left ankle with significant erythema, positive blanching, lymphangitic streaking to proximal tib/fib on left. On the right, there is a smaller 0.5cm nonfluctuant swelling to medial malleolus with less significant erythema that does palma, lymphangitic streaking to mid kemp. Neurologic: Patient awake alert and oriented x 3 Skin: Warm, dry, no rash Medical Decision & Procedures ER Provider Diagnostic Interpretation: Radiology results as stated below per my review and radiologist interpretation: MRI LEFT ANKLE: No osteomyelitis. In the area of clinical concern anteromedially there is a focal fluid collection with apparent venous structure coursing through it. The same day ultrasound showed that a short segment of this venous structure is thrombosed. Please refer to the targeted same-day ultrasound. The fluid collection may represent abscess or hematoma alternatively. Ankle tendons and ligaments are intact with no other internal derangement. US EXTREMITY: Complex collection in the region with increased peripheral vascularity measuring 1.8 x 1.3 x 1.7. Consider the possibility of abscess. The collection surrounds a superficial vein. Vein appears patent proximally and distally to collection but is occluded with thickened merritt in the region where it courses through the collection. Radiologist: David Corrales M.D. Laboratory Results 01/05/18 00:15 Red Blood Count 4.07, Mean Corpuscular Volume 86.5, Mean Corpuscular Hemoglobin 31.0, Mean Corpuscular Hemoglobin Concent 35.8, Mean Platelet Volume 9.4, Neutrophils (%) (Auto) 60.1, Lymphocytes (%) (Auto) 29.6, Monocytes (%) (Auto) 8.3, Eosinophils (%) (Auto) 1.7, Basophils (%) (Auto) 0.2, Neutrophils # (Auto) 6.17, Lymphocytes # (Auto) 3.03, Monocytes # (Auto) 0.85, Eosinophils # (Auto) 0.17, Basophils # (Auto) 0.02 01/05/18 00:15 Test 01/05/18 00:15 White Blood Count 10.25 K/uL (4.8-10.8) Red Blood Count 4.07 M/uL (4.2-5.4) Hemoglobin 12.6 g/dL (12.0-16.0) Hematocrit 35.2 % (37-47) Mean Corpuscular Volume 86.5 fL (80-100) Mean Corpuscular Hemoglobin 31.0 pg (25-34) Mean Corpuscular Hemoglobin Concent 35.8 g/dl (32-36) Platelet Count 273 K/uL (130-400) Mean Platelet Volume 9.4 fL (7.4-10.4) Neutrophils (%) (Auto) 60.1 % Lymphocytes (%) (Auto) 29.6 % Monocytes (%) (Auto) 8.3 % Eosinophils (%) (Auto) 1.7 % Basophils (%) (Auto) 0.2 % Neutrophils # (Auto) 6.17 K/uL (1.4-6.5) Lymphocytes # (Auto) 3.03 K/uL (1.2-3.4) Monocytes # (Auto) 0.85 K/uL (0.11-0.59) Eosinophils # (Auto) 0.17 K/uL (0-0.5) Basophils # (Auto) 0.02 K/uL (0-0.2) RDW Standard Deviation 41.5 fL (36.4-46.3) RDW Coefficient of Variation 12.9 % (11.5-14.5) Immature Granulocyte % (Auto) 0.1 % Immature Granulocyte # (Auto) 0.01 K/uL (0.00-0.02) Erythrocyte Sedimentation Rate 32 mm/hr (0-21) Anion Gap 8.0 mmol/L (3-11) Est Creatinine Clear Calc Drug Dose 100.8 ml/min Estimated GFR () 104.5 Estimated GFR (Non- 90.1 BUN/Creatinine Ratio 16.3 (10-20) Calcium Level 8.7 mg/dl (8.5-10.1) Total Bilirubin 0.2 mg/dl (0.2-1) Direct Bilirubin < 0.1 mg/dl (0-0.2) Aspartate Amino Transf (AST/SGOT) 41 U/L (15-37) Alanine Aminotransferase (ALT/SGPT) 32 U/L (12-78) Alkaline Phosphatase 54 U/L (45-117) C-Reactive Protein 9.24 mg/dl (0-0.29) Total Protein 7.7 gm/dl (6.4-8.2) Albumin 3.7 gm/dl (3.4-5.0) Laboratory results per my review. Medications Administered Medications (Trade) Dose Ordered Sig/Nadja Route Start Time Stop Time Status Last Admin Dose Admin Sodium Chloride 500 ml @ 999 mls/hr Q31M STAT IV 01/05/18 00:01 01/05/18 00:31 DC 01/05/18 00:39 999 MLS/HR Vancomycin HCl 2200 mg/Sodium Chloride 544 ml @ 200 mls/hr ONE STAT IV 01/05/18 04:01 01/05/18 06:44 DC 01/05/18 04:34 200 MLS/HR Procedure 0020: I placed a left external jugular peripheral 18 g IV in the patient. The procedure was performed in the usual fashion and prepped with alcohol and ChloraPrep to allow for blood culture draw. Incision & Drainage Indication: Abscess. Location: Left Ankle Verbal consent was obtained after the risks and benefits were explained, including but not limited to bleeding, scarring, infection, pain, and bone/joint /nerve damage. At this time, the risks of the procedure are less than the risks of NOT performing the procedure. A time out was taken and the correct patient and site identified. The skin was prepped with Betadine and a sterile field set. The wound was anesthetized with 1 ml of 1% lidocaine without epinephrine. The abscess cavity was entered with a number 11 blade and purulent material expressed. Copious irrigation was performed using saline. The wound was explored for foreign bodies and none found. Debridement was not performed, culture was obtained. Packing placed and a sterile dressing applied. Detailed wound care instructions and signs and symptoms of worsening infection reviewed with the patient. No complications and the patient tolerated the procedure well. ED Course 2358: Past medical records reviewed. The patient was evaluated in room B9. A complete history and physical examination was performed. 0001: Sodium Chloride 500 ml @ 999 mls/hr IV 0500: I performed an I&D on the patient's ankle. 0609: Upon reevaluation, the patient appeared to have improvement of her symptoms. I discussed findings with her. She verbalized agreement of the treatment plan. The patient was discharged home. Medical Decision Differential diagnosis: Etiologies such as cellulitis, abscess, MRSA infection, DVT, necrotizing fasciitis, dermatitis, drug eruption, as well as others were entertained. This pt was evaluated and appeared to be in no distress. Peripheral IV access was obtained by me in the left EXTERNAL jugular with an 18 g angiocath. Lab work was drawn. IVF were initiated and IV vancomycin. XR were performed earlier in the day. Lab work reveals a normal WBC, elevated sed rate and CRP. Pt has a similar area of erythema to the right ankle. US of the L was performed and is concerned for abscess directly over a vein. I am concerned that the pt has been injecting in these locations and has strong potential for osteomyelitis. An MRI was performed and is negative for osteo. I&D was performed with a culture sent. Pt was given wound care instructions and d/c for close follow up. She insisted on d/c prior to completion of vancomycin infusion. TD is UTD. Pt was asked to continue keflex and Bactrim. Medication Reconcilliation Current Medication List: was personally reviewed by me Blood Pressure Screening Patient's blood pressure: Low blood pressure Blood pressure disposition: Referred to PCP Impression Primary Impression: Cellulitis and abscess of left lower extremity Additional Impression: Cellulitis of leg, right Scribe Attestation The scribe's documentation has been prepared under my direction and personally reviewed by me in its entirety. I confirm that the note above accurately reflects all work, treatment, procedures, and medical decision making performed by me. Departure Information Dispostion Home / Self-Care Referrals No Doctor, Assigned (PCP) Forms HOME CARE DOCUMENTATION FORM, IMPORTANT VISIT INFORMATION, WORK / SCHOOL INSTRUCTIONS Patient Instructions My [facility] Additional Instructions Diagnosis: Cellulitis and abscess of the left lower extremity, cellulitis of the right lower extremity Keep the wound clean and dry. Wash with warm water and soap 1-2 times daily. Apply antibiotic ointment and bandage. Leave the packing in place for 2 days. Remove the packing in 48 hours and continue dressing changes. Continue Keflex as prescribed. Continue Bactrim DS as prescribed. Wear supportive stockings when on your feet. Call the emergency department charge nurse at [phone] culture results in 48 hours. Return to the ER for worsening of symptoms or any medical concerns. Problem Qualifiers
[2018-01-05] MEDS ORDERED: SULF800T23 PO (00:12)
[2018-01-05 00:54] LABS: BASO % 0.2 %; BASO ABS # 0.02 K/uL (0-0.2); EOS % 1.7 %; EOS ABS # 0.17 K/uL (0-0.5); HEMATOCRIT 35.2 % (37-47); HEMOGLOBIN 12.6 g/dL (12.0-16.0); IG# 0.01 K/uL (0.00-0.02); LYMPH % 29.6 %; LYMPH ABS # 3.03 K/uL (1.2-3.4); MEAN CELL VOLUME 86.5 fL (80-100); MEAN CORPUSCULAR HGB CONC 35.8 g/dl (32-36); MEAN PLATELET VOLUME 9.4 fL (7.4-10.4); MONO % 8.3 %; MONO ABS # 0.85 K/uL (0.11-0.59); NEUT % 60.1 %; NEUT ABS # 6.17 K/uL (1.4-6.5); PLATELET COUNT 273 K/uL (130-400); RED CELL DISTRIBUTION WIDTH CV 12.9 % (11.5-14.5); RED CELL DISTRIBUTION WIDTH SD 41.5 fL (36.4-46.3); WHITE BLOOD COUNT 10.25 K/uL (4.8-10.8)
[2018-01-05 01:14] LABS: ALBUMIN 3.7 gm/dl (3.4-5.0); ALT/SGPT 32 U/L (12-78); AST/SGOT 41 U/L (15-37); BLOOD UREA NITROGEN 13 mg/dl (7-18); CALCIUM 8.7 mg/dl (8.5-10.1); CARBON DIOXIDE 25 mmol/L (21-32); CREATININE 0.82 mg/dl (0.60-1.20); GLUCOSE 119 mg/dl (70-99); POTASSIUM 3.2 mmol/L (3.5-5.1); SODIUM 135 mmol/L (136-145)
[2018-01-05 01:17] LABS: ALKALINE PHOSPHATASE 54 U/L (45-117); TOTAL PROTEIN 7.7 gm/dl (6.4-8.2)
[2018-01-05] MEDS ORDERED: GADAVIST IV PRN (03:30)
[2018-01-05] MEDS ORDERED: SODIUM CHLORIDE 0.9% IV STA (04:01)
[2018-01-05] MEDS ORDERED: VANCOMYCIN IV STA (04:01)
[2018-01-05] MEDS ORDERED: VANCOMYCIN CONSULT ACTIVE PRN (04:15)
[2018-01-05] MEDS ORDERED: XYLOCAINE 1%/SOD BICARB 20 ML VIAL INFIL ONE (04:44)
[2018-01-05 06:41] VITALS: O2SAT 100
--- NOTE | 2018-01-05 06:48 | DIAGNOSTIC IMAGING REPORT ---
LEFT ANKLE ULTRASOUND CLINICAL HISTORY: Left ankle cellulitis. Abscess. COMPARISON STUDY: No previous studies for comparison. TECHNIQUE: Sonography of the medial left ankle at site of pain and swelling was performed. FINDINGS: Note is made of a 1.8 x 1.3 x 1.8 cm fluid collection within the subcutaneous tissues of the anterior medial left ankle. This is just superior to the medial malleolus. Adjacent edema is noted. Note is made of a suspected superficial vein which courses through this collection. The vein is occluded at the level of the collection but patent proximally and distally. There is wall thickening of this vein at site of occlusion. No additional fluid collections were identified. IMPRESSION: 1. 1.8 x 1.3 x 1.8 cm subcutaneous fluid collection of the anterior medial left ankle, located just superior to the medial malleolus. This favors an abscess although a hematoma could appear similar. 2. Superficial vein which courses through this collection is focally occluded consistent with superficial thrombophlebitis. Vein patent proximal and distal to the collection. Electronically signed by: Ken Hayes M.D. 01/05/2018 6:46 AM Dictated Date/Time: 01/05/2018 6:39 AM
--- NOTE | 2018-01-05 06:54 | DIAGNOSTIC IMAGING REPORT ---
MRI OF THE LEFT ANKLE WITH AND WITHOUT CONTRAST CLINICAL HISTORY: Left ankle osteomyelitis. Cellulitis. Abscess. COMPARISON STUDY: Left ankle radiographs January 04, 2018 and left ankle ultrasound January 05, 2018. TECHNIQUE: Utilizing 1.5 Liss magnet and dedicated coil, multiplanar, multi echo imaging of the left ankle was performed pre and postcontrast ministration. Injection of 8.5 cc of Gadavist IV was uneventful. FINDINGS: Note is made of a 1.8 x 1.3 cm T2 hyperintense peripherally enhancing fluid collection of the subcutaneous tissues of the anterior medial left ankle, located just superior to the medial malleolus. This demonstrates peripheral enhancement. There is edema and enhancement within the adjacent soft tissues consistent with cellulitis. There is no evidence for osteomyelitis however the fluid collection extends nearly to the bone. Marrow signal is preserved. Note is made of a superficial vein which courses through the collection and is focally occluded at the level the collection. Talar dome is intact. Flexor, extensor and peroneal tendons are intact. No additional fluid collections are present. Achilles tendon and plantar fascia are unremarkable. Intrinsic ligaments of the left ankle appear intact. IMPRESSION: 1. 1.8 x 1.3 cm rim-enhancing fluid collection of the anterior medial subcutaneous tissues of the left ankle which favors an abscess. A hematoma could appear similar although is considered less likely. Extensive associated edema enhancement suggests cellulitis. No evidence for osteomyelitis. 2. Occluded superficial vein which courses through the collection consistent with superficial thrombophlebitis. Electronically signed by: Ken Hayes M.D. 01/05/2018 6:53 AM Dictated Date/Time: 01/05/2018 6:47 AM
[2018-01-05 07:00] VITALS: BP 98/56
[2018-01-05 07:05] VITALS: PULSE 95
== END 2018-01-05 07:24 | disposition home or self-care (01) ==
LOC: C.EDB 23:43
DX: L02.416 Cutaneous abscess of left lower limb (principal); L03.116 Cellulitis of left lower limb; W10.9XXA Fall (on) (from) unspecified stairs and steps, initial encounter; W45.0XXA Nail entering through skin, initial encounter; F17.200 Nicotine dependence, unspecified, uncomplicated; Z88.8 Allergy status to other drugs, medicaments and biological substances; Z83.3 Family history of diabetes mellitus; Z82.49 Family history of ischemic heart disease and other diseases of the circulatory system; Z83.6 Family history of other diseases of the respiratory system